=== PATIENT | male | born 1980 | race Caucasian/White ===

== ENCOUNTER 2016-12-05 23:23 | Emergency (ER) | payer SELFPAY ==
[~2016-12-05 23:23] MED LIST: BACTRIM DS TABL1 TAB PO; CLEOCIN HCL300 MG PO; ERYC250 MG PO; IBUPROFEN200 MG; KEFLEX500 MG PO; KETOCONAZOLE PO; NO HOME MEDICATION XX; NORCO 5-325 TA1 EACH PO; NORCO 5/325 TAB1 TAB PO; NORCO 5/3251 TA1 NG; NORCO 5/3251 TA1 PO; OMEPRAZOLE20 MG PO; TYLENOL500 MG
[2016-12-06] MEDS ORDERED: NORCO 5-325 TA1 EACH PO (00:16)
[2016-12-06] MEDS ORDERED: ERY-TAB500 M1 PO (00:21)
== END 2016-12-06 00:33 ==
LOC: EDMED 23:23
PROC: 3E023BZ Introduction of Anesthetic Agent into Muscle, Percutaneous Approach (ICD-10-PCS; principal; 2016-12-05)
DX: K04.7 Periapical abscess without sinus (principal); Z88.0 Allergy status to penicillin; F17.200 Nicotine dependence, unspecified, uncomplicated